=== PATIENT | male | born 1990 | race Asian ===

== ENCOUNTER 2025-03-13 22:16 | Inpatient (IN) | payer OTHER ==
[~2025-03-13] VITALS: Ht 172.7 cm; Wt 73.5 kg
[2025-03-13 22:19] VITALS: O2SAT 98
[2025-03-14] MEDS: KETOROLAC 15MG/ML VIAL IM ONE (00:10)
[2025-03-14] MEDS ORDERED: NAPR-1176 MT (00:44)
[2025-03-14 01:28] LABS: BASOPHILS % 0.5 % (0.0-2.0); EOSINOPHILS % 0.5 % (0.0-5.0); HEMATOCRIT. 45.4 % (42.0-52.0); HEMOGLOBIN. 15.3 g/dL (14.0-18.0); LYMPHOCYTES % 22.0 % (20.0-50.0); MEAN PLATELET VOLUME 9.8 fl (7.4-10.4); MONOCYTES % 6.8 % (2.0-8.0); NEUTROPHILS % 70.2 % (40.0-76.0); PLATELET 208 x1000/uL (130-400); RED BLOOD CELL COUNT 5.18 mill/uL (4.7-6.1); RED CELL DISTRIBUTION WIDTH 14.2 % (11.6-14.6)
[2025-03-14 01:43] LABS: CREATININE 1.0 mg/dL (0.6-1.3); UREA NITROGEN BLOOD 8 mg/dL (9-23)
[2025-03-14 01:45] LABS: ASPARTATE AMINOTRANSFERASE 34 IU/L (<34); BILIRUBIN TOTAL 0.6 mg/dL (0.1-1.0); PROTEIN TOTAL 8.4 g/dL (6.0-8.3)
[2025-03-14 03:10] VITALS: BP 113/75; PULSE 76; RESP 16; TEMP 36.6404
[2025-03-14] MEDS ORDERED: NALOXONE HCL 0.4MG/ML VIAL IV PRN (05:00)
[2025-03-14 08:00] VITALS: BP 118/74; PULSE 84; RESP 20; TEMP 36.4; O2SAT 100
[2025-03-14] MEDS: HYDROCODONE/ACETAMINOPHEN 10/325MG TABLET PO PRN (09:19)
[2025-03-14 12:00] VITALS: BP 117/72; PULSE 81; RESP 18; TEMP 36.4; O2SAT 97
[2025-03-14 16:00] VITALS: BP 126/81; PULSE 91; RESP 18; TEMP 36.4; O2SAT 97
[2025-03-14 20:00] VITALS: BP 106/56; PULSE 84; RESP 19; TEMP 36.3; O2SAT 98
[2025-03-15] VITALS (7 sets, daily range): BP systolic 101–138; BP diastolic 56–86; PULSE 70–82; RESP 18–20; TEMP 36.4–36.9; O2SAT 98–100
[2025-03-15] MEDS: MORPHINE SULFATE 4 MG/ML INJ (FOR IV/IM USE) IV PRN (06:56)
[2025-03-15] MEDS: ENOXAPARIN 40MG/0.4ML SYR SUBCUT SCH (13:03)
[2025-03-16] VITALS: BP 125/80; PULSE 74; RESP 16; TEMP 36.8; O2SAT 99
[2025-03-16 04:00] VITALS: BP 128/82; PULSE 70; RESP 18; TEMP 36.6; O2SAT 100
[2025-03-16 08:00] VITALS: BP 129/87; PULSE 73; RESP 20; TEMP 36.7; O2SAT 98
[2025-03-16 09:43] LABS: CREATININE 1.0 mg/dL (0.6-1.3); UREA NITROGEN BLOOD 8 mg/dL (9-23)
[2025-03-16 09:57] LABS: BASOPHILS % 0.6 % (0.0-2.0); EOSINOPHILS % 1.9 % (0.0-5.0); HEMATOCRIT. 42.9 % (42.0-52.0); HEMOGLOBIN. 14.3 g/dL (14.0-18.0); LYMPHOCYTES % 28.7 % (20.0-50.0); MEAN PLATELET VOLUME 9.9 fl (7.4-10.4); MONOCYTES % 8.7 % (2.0-8.0); NEUTROPHILS % 60.1 % (40.0-76.0); PLATELET 177 x1000/uL (130-400); RED BLOOD CELL COUNT 4.90 mill/uL (4.7-6.1); RED CELL DISTRIBUTION WIDTH 14.3 % (11.6-14.6)
[2025-03-16 12:00] VITALS: BP 118/72; PULSE 78; RESP 20; TEMP 36.6; O2SAT 96
[2025-03-16 13:20] LABS: CLARITY URINE CLEAR (CLEAR); COLOR URINE YELLOW (YELLOW); GLUCOSE URINE NEGATIVE (NEGATIVE); KETONES URINE TRACE (NEGATIVE); LEUKOCYTE ESTERASE URINE NEGATIVE (NEGATIVE); NITRITE URINE NEGATIVE (NEGATIVE); OCCULT BLOOD URINE NEGATIVE (NEGATIVE); PH URINE 7.0 (4.5-8.0); PROTEIN URINE NEGATIVE (NEGATIVE); SPECIFIC GRAVITY URINE 1.015 (1.005-1.030); UROBILINOGEN URINE 1.0 E.U./dL (0.2-1.0)
[2025-03-16 16:00] VITALS: BP 126/80; PULSE 73; RESP 20; TEMP 36.7; O2SAT 97
[2025-03-16 20:00] VITALS: BP 134/90; PULSE 75; RESP 18; TEMP 36.8; O2SAT 100
[2025-03-17 04:00] VITALS: BP 121/72; PULSE 71; RESP 18; TEMP 36.7; O2SAT 99
[2025-03-17 08:00] VITALS: BP 123/76; PULSE 70; RESP 19; TEMP 36.4; O2SAT 97
[2025-03-17 08:29] LABS: BASOPHILS % 0.9 % (0.0-2.0); EOSINOPHILS % 1.8 % (0.0-5.0); HEMATOCRIT. 44.4 % (42.0-52.0); HEMOGLOBIN. 14.6 g/dL (14.0-18.0); LYMPHOCYTES % 28.7 % (20.0-50.0); MEAN PLATELET VOLUME 10.2 fl (7.4-10.4); MONOCYTES % 8.0 % (2.0-8.0); NEUTROPHILS % 60.6 % (40.0-76.0); PLATELET 187 x1000/uL (130-400); RED BLOOD CELL COUNT 4.99 mill/uL (4.7-6.1); RED CELL DISTRIBUTION WIDTH 14.0 % (11.6-14.6)
[2025-03-17 08:46] LABS: CREATININE 0.9 mg/dL (0.6-1.3); UREA NITROGEN BLOOD 7 mg/dL (9-23)
[2025-03-17 12:00] VITALS: BP 120/73; PULSE 69; RESP 18; TEMP 36.4; O2SAT 99
[2025-03-17 16:00] VITALS: BP 130/90; PULSE 95; RESP 17; TEMP 36.7; O2SAT 98
[2025-03-17 20:00] VITALS: BP 134/81; PULSE 93; RESP 18; TEMP 36.2; O2SAT 99
[2025-03-18] VITALS: BP 126/81; PULSE 78; RESP 18; TEMP 36.6; O2SAT 99
[2025-03-18 04:00] VITALS: BP 119/87; PULSE 77; RESP 18; TEMP 36.4; O2SAT 98
[2025-03-18 08:00] VITALS: BP 127/82; PULSE 79; RESP 18; TEMP 36.5; O2SAT 99
[2025-03-18 11:48] LABS: INR 1.0
[2025-03-18 11:56] LABS: CREATININE 0.9 mg/dL (0.6-1.3)
[2025-03-18 11:57] LABS: UREA NITROGEN BLOOD 9 mg/dL (9-23)
[2025-03-18 12:00] VITALS: BP 129/92; PULSE 74; RESP 18; TEMP 36.4; O2SAT 98
[2025-03-18 16:00] VITALS: BP 140/98; PULSE 109; RESP 18; TEMP 36.4; O2SAT 100
[2025-03-18] MEDS ORDERED: LIDOCAINE HCL/EPINEPHRINE 1%-EPI 1:100,000 20ML VIAL ONE (16:10)
[2025-03-18] MEDS ORDERED: VANCOMYCIN HCL 1GM VIAL ONE (16:10)
[2025-03-18] MEDS ORDERED: MIDAZOLAM HCL 2 MG/2 ML VIAL ONE (17:11)
[2025-03-18] MEDS ORDERED: CEFAZOLIN SODIUM 1000MG/VIAL ONE (17:11)
[2025-03-18] MEDS ORDERED: FENTANYL CITRATE/PF 50MCG/ML 5ML VIAL ONE (17:12)
[2025-03-18] MEDS ORDERED: LIDOCAINE HCL 1% 20ML VIAL ONE (17:14)
[2025-03-18] MEDS ORDERED: HYDROMORPHONE HCL/PF 2MG/ML INJ ONE (18:15)
[2025-03-18] MEDS ORDERED: HYDRALAZINE 20MG/ML VIAL IV PRN ×2 (19:00)
[2025-03-18] MEDS ORDERED: FAMOTIDINE 20MG/2ML VIAL IV PRN (19:00)
[2025-03-18] MEDS ORDERED: MEPERIDINE HCL/PF 25MG/ML CPJ IV PRN (19:00)
[2025-03-18] MEDS ORDERED: ONDANSETRON HCL 4MG/2ML INJ IV PRN (19:00)
[2025-03-18] MEDS ORDERED: LABETALOL 5MG/ML 4ML INJ IV PRN (19:00)
[2025-03-18] MEDS ORDERED: HYDROMORPHONE HCL/PF 1MG/ML INJ IV PRN (19:00)
[2025-03-18] MEDS ORDERED: ACETAMINOPHEN 1,000MG/100ML PREMIX IV PRN (19:00)
[2025-03-18] MEDS: ACETAMINOPHEN 1000MG/100ML 100 ML IV PRN (19:08)
[2025-03-18 20:00] VITALS: BP 145/91; PULSE 82; RESP 18; TEMP 36.9; O2SAT 95
[2025-03-18] MEDS ORDERED: CEFAZOLIN SODIUM 2000MG/VIAL IJ SCH (22:00)
[2025-03-19] VITALS: BP 124/70; PULSE 90; RESP 16; TEMP 36.4; O2SAT 96
[2025-03-19 04:00] VITALS: BP 116/67; PULSE 68; RESP 17; TEMP 36.6; O2SAT 97
[2025-03-19 08:00] VITALS: BP 128/76; PULSE 61; RESP 20; TEMP 36.8; O2SAT 98
[2025-03-19] MEDS ORDERED: NALOXONE HCL 0.4MG/ML VIAL IV PRN ×2 (10:45→13:45)
[2025-03-19] MEDS: HYDROCODONE/ACETAMINOPHEN 5/325MG TABLET PO PRN (10:53)
[2025-03-19 12:00] VITALS: BP 111/72; PULSE 75; RESP 18; TEMP 36.9; O2SAT 98
[2025-03-19] MEDS ORDERED: HYDR-4009 PO (14:05)
[2025-03-19] MEDS: HYDROCODONE/ACETAMINOPHEN 10/325MG TABLET PO PRN (14:57)
[2025-03-19 16:00] VITALS: BP 124/75; PULSE 83; RESP 20; TEMP 36.9; O2SAT 96
[2025-03-19 16:18] VITALS: BP 124/75; PULSE 83; RESP 20; TEMP 98.4
== END 2025-03-19 20:20 | disposition home or self-care (01) | DRG 308 ==
LOC: ER 22:16 → EDBEDREQ 03-14 02:17 → EDBEDREQTM 03-14 02:17 → ENRESERV 03-14 02:47 → 8EST 03-14 05:21
PROVIDERS: ADMIT Internal Medicine; ATTEND Internal Medicine
PROC: 0QSB04Z Reposition Right Lower Femur with Internal Fixation Device, Open Approach (ICD-10-PCS; principal; 2025-03-18)
DX: S72.491A Other fracture of lower end of right femur, initial encounter for closed fracture (principal); W18.39XA Other fall on same level, initial encounter; Z59.869 Financial insecurity, unspecified; Y93.67 Activity, basketball; Z79.899 Other long term (current) drug therapy; Y92.89 Other specified places as the place of occurrence of the external cause; Y99.8 Other external cause status
CPT/HCPCS: 36415; 71045; 73552; 73560; 73700; 76000; 80048; 80053; 81003; 85025; 97161; 97162; 97166; 97530; 99285; J0690; J1171; J1650; J1885; J2003; J2004; J2250; J2270; J3010; J3373; C1713; J0131